=== PATIENT | male | born 1990 | race Caucasian/White ===

== ENCOUNTER 2016-09-28 09:13 | Emergency (ER) | payer BC, OTHER ==
[~2016-09-28] VITALS: Ht 185.4 cm; Wt 87.0 kg
[2016-09-28 09:15] VITALS: Ht 185.4 cm; Wt 87.0 kg
--- OUTSIDE RECORDS SUMMARY | 2016-09-28 09:19 | XMS REPORT | Continuity of Care Document ---
Author Author [facility] Organization [facility] Address Unknown Phone Unavailable Allergies Active Description Code Type Severity Reaction Onset Reported/Identified Relationship to Patient Clinical Status Yes No Known Allergies Drug Allergy 04/27/2012 Yes No Known Drug Allergies Drug Allergy 04/27/2012 Yes No Known Food Allergies Food Allergy 04/27/2012 Yes No Known Allergies No Known Allergies Drug Allergy Unknown N/A 12/13/2012 Medications Problems Date Dx Coded Attending Type Code Diagnosis Diagnosed By 04/27/2012 Roma Silverman Jr, DO Final 305.1 TOBACCO USE DISORDER 04/27/2012 Roma Silverman Jr, DO P Final 540.9 ACUTE APPENDICITIS NOS 04/27/2012 Roma Silverman Jr, DO P Admitting 541 APPENDICITIS NOS 04/27/2012 Roma Silverman Jr, DO P 789.09 ABDOMINAL PAIN-SITE NEC 04/27/2012 Roma Silverman Jr, DO P Final V06.6 STREP PNEUM FLU VACC Procedures Code [place] [address] LAPAROSCOPY, APPENDECTOMY Roma Silverman Jr, DO P 04/28/2012 Results Test Result Range TROPONIN I BEDSIDE - 12/13/12 14:48 METHOD Bedside TROPONIN I < 0.04 ng/mL < 0.11 CBC W/DIFF - 04/11/14 18:31 EOSINOPHIL # 0.1 k/cumm 0.1-0.5 EOSINOPHIL % 1 % 2-4 GRANULOCYTE # 5.8 k/cumm 2.0-9.0 GRANULOCYTE % 80 % 50-75 LYMPHOCYTE # 0.8 k/cumm 1.0-4.0 LYMPHOCYTE % 11 % 20-30 MEAN CELL HGB 30.9 pg 27.0-33.0 MEAN CELL HGB CONCENTRATION 35.4 g/dL 32.0-37.0 MEAN CELL VOLUME 87.4 fl 80.0-100.0 MONOCYTE # 0.6 k/cumm 0.1-1.0 MONOCYTE % 8 % 4-6 RED BLOOD CELL 5.14 m/cumm 4.00-6.00 RED CELL DISTRIBUTION WIDTH 13.1 % 11.0- 15.6 WHITE BLOOD CELL 7.2 k/cumm 5.0-10.0 HEMOGLOBIN 15.9 gm/dL 14.0-18.0 HEMATOCRIT 44.9 % 40.0-54.0 PLATELET COUNT 307 k/cumm 150-450 METABOLIC PANEL, [facility] - 04/11/14 18:31 POTASSIUM 3.5 mmol/L 3.5-5.3 EST GFR (MDRD) > 60 mL/min > 59 ANION GAP 13 mmol/L 5-15 GLUCOSE 98 mg/dL 70-99 CALCIUM 8.8 mg/dL 8.5-10.1 BLOOD UREA NITROGEN 14 mg/dL 7-20 CREATININE 1.0 mg/dL 0.8-1.3 SODIUM 142 mmol/L 135-148 CHLORIDE 105 mmol/L 98-110 AST/SGOT 13 Units/L 10-37 ALT/SGPT 18 Units/L < 66 CARBON DIOXIDE 24 mmol/L 21-32 TOTAL PROTEIN 7.5 gm/dL 6.4-8.2 ALBUMIN 4.2 gm/dL 3.4-5.0 BILI TOTAL 0.6 mg/dL 0.0-1.0 ALKALINE PHOSPHATASE TOTAL 69 IU/L 45- 117 TROPONIN I BEDSIDE - 04/11/14 18:40 METHOD Bedside TROPONIN I < 0.04 ng/mL < 0.11 URINALYSIS, ROUTINE - 04/11/14 20:45 UA LEUKOCYTE ESTERASE DIPSTICK TRACE NEGATIVE UA NITRITE DIPSTICK NEGATIVE NEGATIVE UA PROTEIN DIPSTICK TRACE NEGATIVE UA GLUCOSE DIPSTICK NEGATIVE NEGATIVE UA KETONE DIPSTICK 2+ NEGATIVE UA UROBILINOGEN DIPSTICK NORMAL NORMAL UA BILIRUBIN DIPSTICK 1+ NEGATIVE UA BLOOD DIPSTICK NEGATIVE NEGATIVE UA SPECIFIC GRAVITY 1.020 1.015-1.025 UR PH 5.0 5.0-7.0 UR DRUGS OF ABUSE SCREEN - 04/11/14 20:45 UR AMPHETAMINES SCREEN NEG (<1000 ng/mL) NEGATIVE UR BARBITURATE SCREEN NEG (< 200 ng/mL) NEGATIVE DRUGS OF ABUSE SCREEN COMMENT UR OPIATES SCREEN POS (> 300 ng/mL) NEGATIVE UR PHENCYCLIDINE (PCP) SCREEN NEG (< 25 ng/mL) NEGATIVE UR CANNABINOIDS (THC) SCREEN POS (> 50 ng/mL) NEGATIVE UR COCAINE METABOLITE SCREEN NEG (< 300 ng/mL) NEGATIVE UR METHADONE SCREEN NEG (< 300 ng/mL) NEGATIVE UR BENZODIAZEPINE SCREEN NEG (< 200 ng/mL) NEGATIVE UA MICROSCOPIC - 04/11/14 20:45 UA EPITHELIAL CELLS 1+ epi/hpf 0 - 1+ UA MUCUS 4+ NEG TO 1+ UA RBC 0-3 rbc/hpf 0 - 3 UA VOLUME FOR EXAM 12.0 mL (12mL STD) UA WBC 2-5 wbc/hpf 0 - 5 URINALYSIS, NO REFLEX CULTURE - 12/07/15 10:58 UA LEUKOCYTE ESTERASE DIPSTICK TRACE NEGATIVE UA NITRITE DIPSTICK NEGATIVE NEGATIVE UA PROTEIN DIPSTICK NEGATIVE NEGATIVE UA GLUCOSE DIPSTICK NEGATIVE NEGATIVE UA KETONE DIPSTICK NEGATIVE NEGATIVE UA UROBILINOGEN DIPSTICK 2+ NORMAL UA BILIRUBIN DIPSTICK NEGATIVE NEGATIVE UA BLOOD DIPSTICK NEGATIVE NEGATIVE UA SPECIFIC GRAVITY 1.015 1.015-1.025 UR PH 6.0 5.0-7.0 UA MICROSCOPIC - 12/07/15 10:58 UA BACTERIA 1+ NEGATIVE UA EPITHELIAL CELLS 1+ epi/hpf 0 - 1+ UA MUCUS 2+ NEG TO 1+ UA RBC 0 rbc/hpf 0 - 3 UA VOLUME FOR EXAM 12.0 mL (12mL STD) UA WBC 0-1 wbc/hpf 0 - 5 Encounters ACCT No. Visit Date/Time Discharge Status Pt. Type Provider Facility Loc./Unit Complaint [id number] 04/27/2012 11:32:00 2011 14:05:00 DIS Outpatient Roma Silverman Jr, DO Via [address]
[2016-09-28] MEDS ORDERED: NO ROUTINE MEDS (09:27)
[2016-09-28] MEDS ORDERED: IBUP-1547 PO (09:27)
--- NOTE | 2016-09-28 10:01 | ERPDOC ---
Departure Disposition Decision Date: Sep 28, 2016 Disposition Decision Time: 12:15 Disposition: 01 DISCHARGED HOME, SELF-CARE Impression Impression Impression: Primary Impression: Cellulitis of scrotum Severity: Moderate Condition: Stable Seen By: Physician only Patient Instructions: Cellulitis (ED) Problems/Meds/Labs Reviewed?: Yes Medications reviewed and manag: Yes Additional Instructions: Percocet 5 mg one to 2 every 6 hours as needed for pain. Keflex 500 mg 2 tabs twice daily for 10 days. Follow-up with surgery as soon as possible to see if this needs to be drained. Follow up care ordered?: Yes Mental Status: Alert, Oriented Scripts Cephalexin (Keflex) 500 Mg Capsule 2 CAP PO BID, #40 CAP Prov: TOMEKA CASTLE MD 09/28/16 Oxycodone HCl/Acetaminophen (Percocet 5-325 mg Tablet) 5-325 Tablet 1-2 TAB PO QID for PAIN, #30 TAB Take 1 tablet, by mouth, 4 times a day. Prov: TOMEKA CASTLE MD 09/28/16 HPI - Skin General General Chief Complaint: Skin Rash/Abscess Stated Complaint: SWOLLEN GENITALS Time Seen by Provider: 09:57 HPI - Skin General Initial Comments 26-year-old male presents with scrotal pain. Patient has noticed over the last 2 days he has had swelling in the perineum up onto the scrotum. Pain has increased significantly to the point that he cannot sleep last night. He has no dysuria. Has noticed swelling of the penile shaft, scrotum and perineum. No fevers. Allergies: Coded Allergies: No Known Drug Allergies (Verified Allergy, Mild, 09/28/16) Past History Past Medical History Pt denies signifigant PMH Surgical History Denies Surgeries Social History Smoking Status: Current every day smoker Substance Use Type: does not use Alcohol Intake: none Marital Status: Sexuality: female partner Record Review Pertinent history updated: Yes Review of Systems General: see HPI Male: see HPI All other Systems All Other Systems: Reviewed and Negative Physical Exam General General Nourishment: well nourished, well developed, appears stated age Distress Description Obvious testicular pain patient is sitting on the bed with his legs propped up on a pillow and knees . Vitals and Pain First Documented Vital Signs Date Time Temp Pulse Resp B/P Pulse Ox O2 Delivery O2 Flow Rate FiO2 09/28/16 09:15 97.8 85 14 125/87 98 Room Air Weight: Kilograms: 87.000 Height (feet): 6 Height (inches): 1.00 Triage Pain Scale: Normal Exams: Head: Normocephalic w/o trauma Neck: Full range of motion, without adenopathy, JVD, bruits or thyromegaly Chest/Resp: Clear all adorno, with good airflow, and symmetry bilaterally CV: Regular rate and rhythm, without murmur or gallop, Pulses 2+ all extremities, capillary refill, <2 seconds all ext., no pedal edema noted Abdomen: Bowel sounds positive, soft, non-tender, non-distended, no hepatosplenomegaly, masses or bruits noted Neurologic: Patient is alert, and oriented, cranial nerves, motor/sensory/ cerebellar, exams w/o gross deficits, to observation Psychiatric: Patient exhibits, appropriate attention, emotion and affect (brief) Comments Penis is circumcised, penile shaft is significantly swollen excess fluid in scrotal sac bilateral with tenseness developing towards the base of the scrotum and significant swelling with induration in the perineum. Incredibly tender to touch. 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 10:04 Hydromorphone PHA 09/28/16 Complete (Dilaudid) 10:30 Ceftriaxone (Rocephin) PHA 09/28/16 In Process 12:15 Oxycodone/Apap 5/325 PHA 09/28/16 Transmitted (Percocet 5/325) 12:15 Lab Results Laboratory Tests Test 09/28/16 10:24 White Blood Count 8.2T/MM3 Red Blood Count 4.48M/MM3 Hemoglobin 14.1GM/DL Hematocrit 40.7% Mean Corpuscular Volume 90.8UM3 Mean Corpuscular Hemoglobin 31.5UUG Mean Corpuscular Hemoglobin Concent 34.6GM/DL RDW Standard Deviation 40.3FL Platelet Count 309T/MM3 Mean Platelet Volume 9.3UM3 Immature Granulocyte % (Auto) 0.1% Neutrophils (%) (Auto) 74.1% Lymphocytes (%) (Auto) 15.2% Monocytes (%) (Auto) 8.9% Eosinophils (%) (Auto) 1.2% Basophils (%) (Auto) 0.5% Absolute Immature Granulocyte (auto 0.01T/MM3 Absolute Neutrophils (auto) 6.1T/MM3 Absolute Lymphocytes (auto) 1.2T/MM3 Absolute Monocytes (auto) 0.7T/MM3 Absolute Eosinophils (auto) 0.1T/MM3 Absolute Basophils (auto) 0.0T/MM3 Turbidity < 20 Sodium Level 144MEQ/L Potassium Level 3.7MEQ/L Chloride Level 109MEQ/L Carbon Dioxide Level 23MEQ/L Anion Gap 12MEQ/L Blood Urea Nitrogen 9.0MG/DL Creatinine 0.8MG/DL Glomerular Filtration Rate Calc 116 BUN/Creatinine Ratio 11RATIO Glucose Level 85MG/DL Calculated Osmolality 275MOSM/KG Calcium Level 8.5MG/DL Total Bilirubin 0.50MG/DL Icterus Index < 2 Aspartate Amino Transf (AST/SGOT) 27U/L Alanine Aminotransferase (ALT/SGPT) 41U/L Alkaline Phosphatase 55U/L Total Protein 7.1G/DL Albumin 4.2G/DL Globulin 2.9G/DL Albumin/Globulin Ratio 1.4RATIO Plasma Lactate 1.8MMOL/L Chemistry Specimen Hemolysis < 15 Medications Current ED Medications Morphine Sulfate (Morphine) 4 mg O ONCE IM ; Start 09/28/16 at 10:15; Stop at 10:25; Status DC Ketorolac Tromethamine (Toradol) 60 mg O ONCE IM Last administered on t 10:42; Start 09/28/16 at 10:15; Stop 09/28/16 at 10:16; Status DC Ondansetron HCl (Zofran Odt) 4 mg O ONCE PO Last administered on 09/28/16 10: 41; Start 09/28/16 at 10:15; Stop 09/28/16 at 10:16; Status DC Hydromorphone HCl (Dilaudid) 1 mg O ONCE IM Last administered on 09/28/16 10: 41; Start 09/28/16 at 10:30; Stop 09/28/16 at 10:31; Status DC Ceftriaxone Sodium (Rocephin) 1 g O ONCE IM Last administered on 09/28/16 12: 07; Start 09/28/16 at 12:15; Stop 09/28/16 at 12:16 Progress Progress Ultrasound shows possible abscess with significant cellulitis across the scrotum. Patient given Rocephin 1 g IM, we started on Keflex 500 mg 2 tabs twice daily and Percocet for pain. He was given Dilaudid 0.5 mg IM, Zofran 4 mg IM. And a Percocet 5 mg by mouth prior to leaving. 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 However he may feel like he has to. He will have the antibiotics and can follow up as soon as possible. TOMEKA CASTLE MD Sep 28, 2016 10:01
[2016-09-28] MEDS ORDERED: ONDANSETRON ODT 4 MG TAB PO ONE (10:15)
[2016-09-28] MEDS ORDERED: KETOROLAC 60mg/2ml INJECTION IM ONE (10:15)
[2016-09-28] MEDS ORDERED: MORPHINE SULFATE 4 MG SYRINGE IM ONE (10:15)
[2016-09-28 10:29] LABS: BASOPHILS % (AUTO) 0.5 % (0-2); EOSINOPHILS # (AUTO) 0.1 T/MM3 (0-0.5); EOSINOPHILS % (AUTO) 1.2 % (0-4); HCT - HEMATOCRIT 40.7 % (41-53); HGB - HEMOGLOBIN 14.1 GM/DL (13.5-17.5); IMMATURE GRANULOCYTE # (AUTO) 0.01 T/MM3 (0.00-0.03); IMMATURE GRANULOCYTE % (AUTO) 0.1 % (0.0-0.5); LYMPHOCYTES # (AUTO) 1.2 T/MM3 (1-4.8); LYMPHOCYTES % (AUTO) 15.2 % (23-45); MEAN CORPUSCULAR HGB 31.5 UUG (26-34); MEAN CORPUSCULAR HGB CONC(MCHC 34.6 GM/DL (31-37); MEAN CORPUSCULAR VOLUME 90.8 UM3 (80-100); MEAN PLATELET VOLUME 9.3 UM3 (9.4-12.4); MONOCYTES # (AUTO) 0.7 T/MM3 (0-0.8); MONOCYTES % (AUTO) 8.9 % (0-9.0); NEUTROPHILS #(AUTO)-ABSOLUTE 6.1 T/MM3 (1.8-7.7); NEUTROPHILS % (AUTO) 74.1 % (33-66); RED BLOOD COUNT 4.48 M/MM3 (4.50-5.90); WBC - WHITE BLOOD COUNT 8.2 T/MM3 (4.5-11.0)
[2016-09-28] MEDS ORDERED: HYDROMORPHONE 2mg/ml INJECTION IM ONE (10:30)
[2016-09-28 10:37] LABS: LACTATE - LACTIC ACID 1.8 MMOL/L (0.6-2.2)
[2016-09-28 10:38] LABS: ALBUMIN 4.2 G/DL (3.5-5.0); ALBUMIN/GLOBULIN RATIO 1.4 RATIO (1.1-2.2); ALKALINE PHOSPHATASE 55 U/L (38-126); ALT (SGPT) 41 U/L (21-72); ANION GAP 12 MEQ/L (5-15); AST (SGOT) 27 U/L (17-59); BUN/CREATININE RATIO 11 RATIO (6-26); CALCIUM 8.5 MG/DL (8.4-10.2); CHLORIDE 109 MEQ/L (98-107); CO2 - CARBON DIOXIDE 23 MEQ/L (22-30); CREATININE 0.8 MG/DL (0.8-1.5); GLOMERULAR FILTRATION RATE 116; GLUCOSE 85 MG/DL (75-110); POTASSIUM 3.7 MEQ/L (3.6-5); SODIUM 144 MEQ/L (134-144); TOTAL PROTEIN 7.1 G/DL (6.3-8.2)
--- OUTSIDE RECORDS SUMMARY | 2016-09-28 10:53 | XMS REPORT | Continuity of Care Document ---
Author Author [facility] Organization [facility] Address Unknown Phone Unavailable Allergies Active Description [...] Procedures Code Description [place] [address] LAPAROSCOPY, APPENDECTOMY Roma Silverman Jr, DO P [...] PLATELET COUNT 307 k/cumm 150-450 METABOLIC PANEL, [facility] - 04/11/14 18:31 POTASSIUM 3.5 mmol/L [...] Status Pt. Type Provider Facility Loc./Unit Complaint [id number] 04/27/2012 11:32:00 2011 14:05:00 DIS Outpatient Roma Silverman Jr, DO [address]
--- NOTE | 2016-09-28 11:45 | NUR ---
UA PATIENT STATES THAT HE IS UNABLE TO VOID AT THIS TIME. PATIENT PROVIDED WITH DRINK OF WATER PER DR CASTLE.
[2016-09-28] MEDS ORDERED: OXYCODONE/APAP 5mg/325mg TABLET PO ONE (12:15)
[2016-09-28] MEDS ORDERED: CEFTRIAXONE 1 GRAM INJECTION IM ONE (12:15)
[2016-09-28] MEDS ORDERED: CEPH-583 PO (12:16)
[2016-09-28] MEDS ORDERED: OXYC1TAB8 PO (12:16)
[2016-09-28 12:21] VITALS: BP 124/87; PULSE 85; RESP 18; TEMP 97.8; O2SAT 98
--- NOTE | 2016-09-28 13:17 | DI ---
Indication: ITS.REASON: swelling of perineum and scrotum PROCEDURE: US TESTICULAR: Encounter: Initial Comparison: None FINDINGS: Both testicles are present in expected location. The testicles demonstrate a homogenous echotexture without intratesticular mass. The right testicle measures 5.3 x 2.5 x 3.1 cm, and the left testicle measures 4.4 x 2.6 x 2.8 cm. Color Doppler imaging demonstrates symmetric, arterial flow throughout both testicles. Normal pulsed Doppler arterial and venous waveforms were obtained from each testicle. 5 mm right epididymal head cyst or spermatocele. 6 mm left epididymal head cyst or spermatocele. Both epididymides are otherwise normal without focal mass or hyperemia. Small bilateral varicoceles. Scrotal skin thickening. Focal thickening in the area of palpable lump measuring over 5 cm in diameter could represent a phlegmon, mass, hematoma or abscess. IMPRESSION: No evidence of testicular torsion or intratesticular mass. Diffuse scrotal skin thickening with possible phlegmon, mass or hematoma. Recommend urologic consultation and physical exam. There is a preliminary report by [facility]. .
== END 2016-09-28 12:21 | disposition home or self-care (01) ==
LOC: ED 09:13
DX: N49.2 Inflammatory disorders of scrotum (principal)
CPT/HCPCS: 36415; 80053; 83605; 85025; 96372